=== PATIENT | female | born 1990 | race Caucasian/White ===

== ENCOUNTER 2017-08-03 21:48 | Emergency (ER) | payer OTHER ==
[~2017-08-03] VITALS: Ht 167.6 cm; Wt 59.5 kg
[2017-08-03 21:53] VITALS: BP 107/68
--- NOTE | 2017-08-03 22:03 | NUR ---
26Y F BIB FAMILY C/O ABSCESS TO RIGHT ARMPIT X 3 DAYS; PT STATES SHE HAS HX OF GETTING ABSCESS BUT USUALLY THEY ARE NOT THIS BAD; PT DENIES ANY N/V/D,SOB,CP AT THE MOMENT; PT STATES ABSCESS IS TENDER TO TOUCH; PT AAOX4; BREATHING IS UNLABORED AND CLEAR; PT AMBULATED TO ER BED WITH STEADY GAIT
--- NOTE | 2017-08-03 22:04 | NUR ---
PT TAKEN TO BED 7
--- NOTE | 2017-08-03 23:09 | NUR ---
Dr. Parker evaluating patient at bedside.
[2017-08-03] MEDS ORDERED: cefTRIAXone 1,000 MG in LIDOCAINE 1% ***ER ONLY *** 2.1 ML IM ONE (23:20)
[2017-08-03 23:50] VITALS: BP 110/68
--- NOTE | 2017-08-03 23:52 | NUR ---
Patient discharged with v/s stable. Written and verbal after care instructions given and explained. Patient alert, oriented and verbalized understanding of instructions. Ambulatory with steady gait. All questions addressed prior to discharge. ID band removed. Patient advised to follow up with PMD. Rx of KEFLEX 500MG QID given. Patient educated on indication of medication including possible reaction and side effects. Opportunity to ask questions provided and answered.
== END 2017-08-03 23:52 | disposition home or self-care (01) ==
LOC: MED 21:48
DX: L03.111 Cellulitis of right axilla (principal)
CPT/HCPCS: 96372; 99283; J0696; J2001

== ENCOUNTER 2020-02-29 15:12 | Emergency (ER) | payer MEDICAID, OTHER ==
[~2020-02-29] VITALS: Ht 167.6 cm; Wt 65.8 kg
[2020-02-29 15:38] VITALS: BP 113/71
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
--- NOTE | 2020-02-29 15:46 | NUR ---
[facility] EVALUATING PT
[2020-02-29 16:56] VITALS: BP 113/71
== END 2020-02-29 16:57 | disposition home or self-care (01) ==
LOC: MED 15:12
DX: S60.031A Contusion of right middle finger without damage to nail, initial encounter (principal); W22.8XXA Striking against or struck by other objects, initial encounter; Y93.89 Activity, other specified; Y92.89 Other specified places as the place of occurrence of the external cause; Y99.8 Other external cause status
CPT/HCPCS: 73140; 99283

== ENCOUNTER 2020-08-10 00:09 | Emergency (ER) | payer MEDICAID ==
[~2020-08-10] VITALS: Ht 165.1 cm; Wt 65.8 kg
[2020-08-10 00:40] VITALS: BP 137/75
--- NOTE | 2020-08-10 00:40 | NUR ---
TO TENT #01 AMBULATORY
--- NOTE | 2020-08-10 01:25 | NUR ---
SEEN AND EXAMINED BY JUSTIN WITH ORDERS AND CARRIED OUT.
[2020-08-10 01:30] VITALS: BP 137/75
--- NOTE | 2020-08-10 02:05 | NUR ---
SWAB DONE AND SENT TO LAB (NOVEL, sTREP RAPID )
--- NOTE | 2020-08-10 02:59 | NUR ---
Patient discharged with v/s stable. Written and verbal after care instructions given and explained. Patient alert, oriented and verbalized understanding of instructions. Ambulatory with steady gait. All questions addressed prior to discharge. ID band removed. Patient advised to follow up with PMD. Rx of AZITHROMYCIN given. Patient educated on indication of medication including possible reaction and side effects. Opportunity to ask questions provided and answered.
== END 2020-08-10 02:59 | disposition home or self-care (01) ==
LOC: MED 00:09
DX: B34.9 Viral infection, unspecified (principal); Z20.828 Contact with and (suspected) exposure to other viral communicable diseases
CPT/HCPCS: 87081; 99283; U0003

== ENCOUNTER 2021-01-16 14:20 | Emergency (ER) | payer MEDICAID ==
[~2021-01-16] VITALS: Ht 165.1 cm; Wt 68.0 kg
[2021-01-16 14:28] VITALS: BP 106/46
[2021-01-16] MEDS ORDERED: LIDOCAINE MPF 1% 10 MG/ML VIAL INJ ONE (14:55)
[2021-01-16] MEDS ORDERED: IBUPROFEN 600 MG TAB PO ONE (14:55)
[2021-01-16] MEDS ORDERED: NAPR-54 PO (15:15)
[2021-01-16] MEDS ORDERED: CEPH-588 PO (15:15)
[2021-01-16 15:33] VITALS: BP 106/46
== END 2021-01-16 15:34 | disposition home or self-care (01) ==
LOC: MED 14:20
DX: N61.1 Abscess of the breast and nipple (principal)
CPT/HCPCS: 10060; 99283; J2001